=== PATIENT | male | born 1960 | race Caucasian/White ===

== ENCOUNTER 2016-02-24 05:36 | Day surgery (SDC) | payer OTHER ==
[2016-02-17 10:58] LABS: APPEARANCE,URINE CLEAR; BILIRUBIN,URINE NEGATIVE (NEGATIVE); GLUCOSE, URINE NEGATIVE (NEGATIVE); KETONES,URINE NEGATIVE (NEGATIVE); LEUKOCYTE ESTERASE,URINE NEGATIVE (NEGATIVE); NITRITE,URINE NEGATIVE (NEGATIVE); PROTEIN,URINE NEGATIVE (NEGATIVE); URINE SPECIFIC GRAVITY 1.006; UROBILINOGEN,URINE NEGATIVE mg/dL (<2.0)
[2016-02-17 11:11] LABS: HEMATOCRIT 44.5 % (37.9-51.0); HEMOGLOBIN 15.2 g/dL (13.5-17.0); HGB HCT DIFFERENCE 1.1; MEAN CORPUSCULAR HEMOGLOBIN 33.1 pg (27.0-33.4); MEAN CORPUSCULAR HGB CONC 34.2 g/dL (32.0-36.0); MEAN CORPUSCULAR VOLUME 97 fl (80-97); RED CELL DISTRIBUTION WIDTH 13.8 % (11.5-14.0); WHITE BLOOD COUNT 8.7 10^3/uL (4.0-10.5)
[2016-02-17 11:34] LABS: ANION GAP 10 (5-19); BLOOD UREA NITROGEN 10 mg/dL (7-20); CALCIUM 9.6 mg/dL (8.4-10.2); CARBON DIOXIDE 29 mmol/L (22-30); CHLORIDE 96 mmol/L (98-107); CREATININE RESULT 0.84 mg/dL (0.52-1.25); GLUCOSE 90 mg/dL (75-110); SODIUM 135.1 mmol/L (137-145)
[~2016-02-24 05:36] MED LIST: CEFAZOLIN SODIUM 1 GM in DEXTROSE 5%-WATER 50 ML IV PRN; LACTATED RINGERS 1000 ML IV PRN; LIDOCAINE 0.5% INJ-PF (5 MG/ML) 50 ML SDV SUBCUT PRN
[2016-02-24] MEDS ORDERED: MIDAZOLAM 2 MG/2 ML INJ ONE (07:47)
[2016-02-24] MEDS ORDERED: BUPIVACAINE HCL 0.5 % INJ/PF 30 ML SDV ONE (07:47)
[2016-02-24] MEDS ORDERED: ONDANSETRON HCL INJ/PF 4 MG/2 ML SDV ONE (07:47)
[2016-02-24] MEDS ORDERED: FENTANYL CITRATE INJ/PF 100 MCG/2 ML AMPUL ONE (07:47)
[2016-02-24] MEDS ORDERED: HYDROMORPHONE HCL INJ/PF 2 MG/ML AMPULE ONE (07:47)
[2016-02-24] MEDS ORDERED: PROPOFOL INJ 200 MG/20 ML VIAL IV ONE (07:48)
[2016-02-24] MEDS ORDERED: BETAMET ACET/BETAMET NA INJ 6 MG/1 ML IM PRN (08:03)
[2016-02-24] MEDS ORDERED: DIPHENHYDRAMINE HCL 50 MG/ML VIAL IV PRN (08:24)
[2016-02-24] MEDS ORDERED: MEPERIDINE HCL/PF INJ 25 MG/1 ML DISP.SYRIN IV PRN (08:24)
[2016-02-24] MEDS ORDERED: PROMETHAZINE HCL INJ 25 MG/1 ML VIAL IV PRN (08:24)
[2016-02-24] MEDS ORDERED: FENTANYL CITRATE INJ/PF 100 MCG/2 ML AMPUL IV PRN ×3 (08:24)
[2016-02-24] MEDS ORDERED: HYDROCODONE/ACETAMINOPHEN 5-325 MG TABLET PO PRN (08:51)
[2016-02-24] MEDS ORDERED: ONDANSETRON HCL INJ/PF 4 MG/2 ML SDV IV PRN (08:51)
--- NOTE | 2016-02-24 08:51 | Operative Report ---
Operative Report DATE OF SURGERY: 02/24/16 PREOPERATIVE DIAGNOSIS: Bilateral Carpal Tunnel Syndrome (Left > Right) POSTOPERATIVE DIAGNOSIS: Same OPERATION: Endoscopic Left Carpal Tunnel Release, Right Carpal Tunnel Injection SURGEON: MANAN LEIVA ANESTHESIA: GA COMPLICATIONS: None ESTIMATED BLOOD LOSS: Minimal PROCEDURE: Indication for above procedure: Pleasant 55-year-old male with long-standing history of numbness and tingling in his fingers. Patient had neurodiagnostic testing demonstrating bilateral carpal tunnel syndrome left greater than right. At that point we discussed treatment options and given the fact patient failed conservative management the joint decision was made to proceed with operative intervention. Risks and benefits were explained to the patient patient verbalized understanding consented for the procedure. Procedure In Detail: Patient was seen and evaluated in the preoperative holding area. The LEFT upper extremity was initialized and marked. Patient received Ancef IV for bacterial prophylaxis. Patient was taken back to the operative room where transferred operative table. Patient was then placed under anesthesia. Once adequately anesthetized, a nonsterile tourniquet was placed on the upper extremity. A surgical team debriefing was performed ensuring all instrumentation was available, the surgical procedure was discussed with possible concerns reviewed. The upper extremity was prepped with chlorhexidine and alcohol and draped in a sterile fashion. A timeout was done identifying correct patient, procedure and extremity everyone in attendance agree with this and verbalized no concerns.The extremity was then exsanguinated the tourniquet was inflated to 200 mmHg. A transverse skin incision was made just proximal to the wrist flexion crease ulnar to the palmaris longus. Blunt dissection was performed down to the palmaris longus tendon which was retracted radially. Deep to the palmaris longus tendon was the volar carpal ligament this was incised identifying the median nerve deep. I then used a [place] elevator to free any soft tissue from the undersurface of the distal transverse carpal ligament indentifying the hook of hamate ulnarly. The ConMed cannulas were then introduced beginning with #1 progressing to a #3 gently dilating the carpal canal. I then introduced the scope within the cannula and identified carpal ligament. The median nerve was not visualized within the cannula ensuring adequate retraction from the transverse carpal ligament incision site. I triangulated distally with a 25- gauge needle identifying the distal aspect of the transverse carpal ligament, to ensure protection of the superficial palmar arch. I then proceeded with incision of the transverse carpal ligament. The arthroscopic knife was used to incise the transverse carpal ligament under direct visualization with the arthroscopic camera. Any excess transverse fibers that remained after the first past were carefully released with a repeat pass. The median nerve was then directly visualized radially without disruption. Once this was completed I placed the #3 dilator and assured I got complete release of the transverse carpal ligament without residual compression. The median nerve was directly visualized and free of any overlying compression. I then turned my attention to release of the volar antebrachial fascia proximally. Once again a [place] was used to open the wound and I proceeded with cannula #1 to #3. The arthroscope was introduced into the cannula and under direct visualization the volar antebrachial fascia was released. Once this was complete I copiusly irrigated the wound with normal saline. The skin incision was closed with 4-0 Monocryl subcutaneous and a running subcuticular 4-0 Monocryl. This was reinforced with Dermabond and Steri-Strips. Sterile, 4 x 4's and a [place] bandage was placed loosely. Sponge counts, instrument counts and needle counts were correct. I then proceeded with injection of the right carpal tunnel. Skin was prepped with alcohol. A mixture of 1 mL of lidocaine and 6 mg/mL of Celestone were injected into the carpal canal just proximal to the wrist crease. The was no intraoperative complications patient tolerated the procedure well and was stable to PACU.
--- NOTE | 2016-02-24 08:51 | PDOC DISCHARGE SUMMARY ---
Discharge Summary (SDC) - Discharge Final Diagnosis: Bilateral Carpal Tunnel Syndrome Date of Surgery: 02/24/16 Discharge Date: 02/24/16 Condition: Good Treatment or Instructions: Schedule Follow Up w/ Dr. Aaron Dwyer @ [facility] to be seen in 10-14 days or as scheduled [place]: [place]: [place]: May remove dressing on postop day #3 keep incision covered and dry. Ice and elevate May begin finger range of motion attempting to make full fist. Stool softener of choice when on pain medication. Prescriptions: Hydrocodone/Acetaminophen [Archbald 5-325 mg Tablet] 1 tab PO Q6 PRN #20 tablet PRN Reason: Discharge Diet: As Tolerated Discharge Activity: Activity As Tolerated, No Lifting Over 10 Pounds, No Lifting /Push/Pulling, Slowly Increase Activity Report the Following to Your Physician Immediately: Increase in Pain, Fever over 101 Degrees, Unusual Bleeding, Redness, Swelling, Warmth, Drainage-Foul Smelling, Numbness, Tingling Sensation
[2016-02-24 10:53] VITALS: BP 135/91
[2016-02-24] MEDS ORDERED: LIDOCAINE 2% INJ-PF (20 MG/ML) 10 ML AMPUL ONE (14:31)
== END 2016-02-24 10:20 | disposition home or self-care (01) ==
LOC: OROUT 05:36
PROVIDERS: ATTEND Orthopaedic Surgery
PROC: 3E0T33Z Introduction of Anti-inflammatory into Peripheral Nerves and Plexi, Percutaneous Approach (ICD-10-PCS; 2016-02-24)
PROC: 3E0T3BZ Introduction of Anesthetic Agent into Peripheral Nerves and Plexi, Percutaneous Approach (ICD-10-PCS; 2016-02-24)
PROC: 01N54ZZ Release Median Nerve, Percutaneous Endoscopic Approach (ICD-10-PCS; principal; 2016-02-24 08:00)
DX: G56.01 Carpal tunnel syndrome, right upper limb (principal); G56.02 Carpal tunnel syndrome, left upper limb; I10 Essential (primary) hypertension; F17.210 Nicotine dependence, cigarettes, uncomplicated; Z79.899 Other long term (current) drug therapy
CPT/HCPCS: 36415 ×2; 84132; 85027; 80048; 81001; 29848; 20526; J2250; J0690; J1170; J0702; J2405; J2704; J3490; 1810; J3010

== ENCOUNTER → 2016-06-15 | Outpatient (CLI) | payer OTHER | LOC: RAD 12:23 | PROVIDERS: ATTEND Internal Medicine Gastroenterology | DX: R10.816 Epigastric abdominal tenderness (principal); R10.812 Left upper quadrant abdominal tenderness; R11.0 Nausea | CPT/HCPCS: 74177; 82565 ==